=== PATIENT | female | born 1990 | race Caucasian/White ===

== ENCOUNTER 2020-01-26 08:36 | Outpatient (CLI) | payer MEDICAID ==
[~2020-01-26] VITALS: Ht 152 cm; Wt 63.2 kg
[~2020-01-26 08:36] MED LIST: IBUP-1773 PO; PNV91TAB3 PO
--- NOTE | 2020-01-26 08:42 | NUR ---
KANDACE PERSON presented to unit via ambulatory from ED, with c/o BACK PAIN. KANDACE PERSON weighed, gowned, voided, and to bed. EFHM and TOCO applied, VS taken. KANDACE PERSON oriented to bed controls, call light, TV, heat, and A/C controls.
[2020-01-26 09:00] VITALS: BP 126/85
--- NOTE | 2020-01-26 09:10 | NUR ---
This RN talks to Dr Hendrickson, discusses pt report. 27.1 wk CO left sided flank pain, sharp stabbing constant pain, rating pain 6. 125/85 bp, hr 125, 97%, 18 resp, urine dip results, urine send for UA and culture. No fever. NO UC noted by TOCO. Dr Hendrickson orders to start iv, 1L D5LR, [place] 5g one time, 1g Rocephin, renal US.
[2020-01-26] MEDS ORDERED: HYDROcodone/APAP 5 MG/325 MG (LORTAB) TAB PO ONE (09:15)
[2020-01-26] MEDS ORDERED: D5 LR IV SOLUTION 1,000 ML IV SCH (09:15)
[2020-01-26] MEDS ORDERED: cefTRIAXone FOR IV USE 1,000 MG in WATER (STERILE) FOR INJECTION 10 ML IV ONE (09:15)
[2020-01-26 09:21] LABS: BILIRUBIN,URINE NEGATIVE (NEGATIVE); CLARITY,URINE CLEAR; COLOR,URINE YELLOW; GLUCOSE, URINE (UA) NEGATIVE (NEGATIVE); KETONES,URINE 1+ (NEGATIVE); LEUKOCYTE ESTERASE ,URINE 3+ (NEGATIVE); NITRITE,URINE NEGATIVE (NEGATIVE); PROTEIN,URINE NEGATIVE (NEGATIVE)
[2020-01-26 09:40] LABS: BACTERIA,URINE FEW /HPF; SQUAMOUS EPITHELIAL CELL,UR >50 /HPF; WBC,URINE 50-100 /HPF
--- NOTE | 2020-01-26 10:40 | NUR ---
US at bedside for renal US
[2020-01-26] MEDS ORDERED: CEFD300C3 PO (11:21)
--- NOTE | 2020-01-26 11:23 | Diagnostic Imaging Report ---
PROCEDURE: US Renal Bilateral. TECHNIQUE: Multiple Real-time grayscale images were obtained over the kidneys in various projections bilaterally. INDICATION: Left flank pain. Patient is 27 weeks . FINDINGS: The right kidney measures 10.6 x 5.0 x 5.3 cm and the left kidney measures 12.5 x 6.1 x 4.8 cm. The cortical thickness and echogenicity are normal bilaterally. No calculi are seen. There is no hydronephrosis on either side. The urinary bladder demonstrates bilateral ureteral jets. IMPRESSION: Unremarkable renal ultrasound. Dictated by: Dictated on workstation # [id number]
--- NOTE | 2020-01-27 08:14 | Physician Query-Final Dx ---
SANDRA ROSENBERG 01/27/20 0814: Clinic Account Progress/Dx Physician Query: Please give diagnosis Please include # weeks gestation Date of Service Jan 26, 2020 at 08:36 ESTHER ARAUJO MD 01/27/20 2232: Clinic Account Progress/Dx DIAGNOSIS: Diagnosis Left Flank pain Third trimester 27 weeks gestation SANDRA ROSENBERG Jan 27, 2020 08:14 ESTHER ARAUJO MD Jan 27, 2020 22:32
== END 2020-01-26 11:35 | disposition home or self-care (01) ==
LOC: WSo 08:36 → LDRP 08:37 → WSo 11:35
PROVIDERS: ATTEND Family Medicine
DX: O26.892 Other specified pregnancy related conditions, second trimester (principal); R10.9 Unspecified abdominal pain; Z3A.27 27 weeks gestation of pregnancy
CPT/HCPCS: 76770; 81000; 87077; 87088

== ENCOUNTER 2020-03-29 01:05 | Inpatient (IN) | payer MEDICAID ==
[~2020-03-29] VITALS: Ht 149.9 cm; Wt 66.4 kg
[2020-03-29] VITALS (55 sets, daily range): BP systolic 93–138; BP diastolic 51–91
[~2020-03-29 01:05] MED LIST changes: +CEFD300C3 PO
--- NOTE | 2020-03-29 01:10 | NUR ---
KANDACE PERSON presented to unit via AMBULATORY from ED, accompanied by SO, with c/o WATER BROKE. KANDACE PERSON weighed, AND to bed. EFHM and TOCO applied, VS taken. KANDACE PERSON oriented to bed controls, call light, TV, heat, and A/C controls. ABOVE AND FURTHER ASSESSMENTS COMPELTED PER THIS RN, SEE INTERVENTIONS.
[2020-03-29] MEDS ORDERED: D5 LR IV SOLUTION 1,000 ML IV ONE (01:23)
[2020-03-29] MEDS ORDERED: D5 LR IV SOLUTION 1,000 ML IV SCH (02:07)
[2020-03-29] MEDS ORDERED: AMPICILLIN FOR IV USE 2,000 MG in WATER (STERILE) FOR INJECTION 14.8 ML IV SCH (02:07)
[2020-03-29] MEDS ORDERED: MINERAL OIL CONCENTRATE 99.9% 15 ML UDC TOP PRN (02:15)
--- NOTE | 2020-03-29 02:23 | NUR ---
admission paperwork completed.
[2020-03-29] MEDS ORDERED: WATER (STERILE) FOR INJECTION 20 ML ONE (02:27)
[2020-03-29] MEDS ORDERED: AMPICILLIN FOR IV USE 2,000 MG VIAL ONE (02:27)
--- NOTE | 2020-03-29 02:29 | History & Physical-OB ---
OB - Chief Complaint & HPI Date/Time Date of Admission: Date of Admission: 03/29/2020 Date seen by a Provider: Mar 29, 2020 Time Seen by a Provider: 01:45 Chief Complaint/History OB-Reason for Admission/Chief: Labor (w/ rupture of membranes) Hx : 2 Hx Para: 1 Expected Date of Delivery: Apr 23, 2020 Gestational Age in Weeks: 36 Gestational Age in Days: 3 Admission Nurse Assessment Rev: Yes History of Labs A+, Ab+, RI, HIV-, HepB-, RPR-, NG/CT-, GBS+, abnormal pap (2015) Allergies and Home Medications Allergies Coded Allergies: No Known Drug Allergies (Unverified , 04/03/16) Patient Home Medication List Home Medication List Reviewed: Yes OB - History Hx of Present Care: Yes Ultrasounds: Normal mid trimester US Obstetrical Complications: None Medical Complications: None Information Induced Hypertension: No Maternal Gestational Diabetes: No Hemorrhage: No Obstetrical History Hx : 2 Hx Para: 1 Hx # Term Pregnancies: 1 Number of Living Children: 1 Hx Termination: No Hx Multiple Gestation: No Hx Ectopic : No Hx Stillbirth: No Hx Complication: No Hx Induced Hypertens: No Hx Maternal Gestational Diabet: No Hx Hemorrhage: No Delivery History Hx Dystocia: No Hx Forceps Assisted Delivery: No Hx Vacuum Extraction Assisted: No Hx Placenta Abnormality: No Hx Distress: No Hx Large For Gestational Age I: No Hx Small for Gestational Age I: No Hx Section: No Hx Vaginal Delivery Post C-Sec: No Hx Blood Disorders: No Adverse Rxn to Tranfusion: No Patient Past Medical History Chlamydia during last ; negative this ; positive Influenza A this Harper Richardson is a at 36w3d by LMP who presented to OB triage 03/29 for rupture of membranes and contractions. She states she woke up around 1230 thinking she had peed herself in bed, when she realized it wasn't pee. She also noticed contractions at that time, which she describes as lower quadrant band pain, rating her pain about 2/10. She denies any complications this aside from being diagnosed with costochondritis this past weekend. Upon chart review, she was seen in triage this for abdominal pain (negative ultrasound), and was positive for Influenza A. Her last she went into labor at 38w1d, no complications during the or with labor. She denies history of hypertension, diabetes, or preeclampsia. She denies fevers, chills, headache, vision changes, chest pain/pressure, shortness of breath, RUQ pain, or lower extremity edema. +LOF, -VB, +FM, +CTX A+, Ab+, RI, HepB-, RPR-, NG-/CT-, GBS+, abnormal pap (2016) Social History/Family History HIV/AIDS: No Recent Infectious Disease Expo: No Sexually Transmitted Disease: No Alcohol Use: Denies Use Recreational Drug Use: No 2nd Hand Smoke Exposure: No Immunizations Hepatitis A: Yes Hepatitis B: Yes Tetanus Booster (TDap): Less than 5yrs Date of Influenza Vaccine: May 10, 2016 Rubella: immune RPR/VDRL: Negative GBS Status: Positive (via urine culture) HBsAG: Negative OB - Admission Exam Physical Exam Vitals: Vital Signs 03/29/20 01:30 Temp 36.8 Pulse 105 Resp 18 Pulse Ox 99 O2 Delivery Room Air HEENT: Eyes non-injected Heart: Rhythm Normal Lungs: Clear Abdomen: Gravid Extremities: Normal Reflexes: Normal Cervical Dilatation: 2cm Effacement: 50% Membranes: Ruptured Amniotic Fluid: Clear Heart Rate: 150's Accelerations: Accelerations Present Decelerations: No Decelerations Short Term Variability: Present Clinical Product Manager Variability: Average (6-25) Contractions on Admission: < 5 Minutes Apart Date/Time Contractions Began;: 03/29/2020 ~1230 Intensity: Mild Young Scoring Tool (Modified) Dilation (cm): 1-2cm (1) Effacement (%): 51-79% (2) Add 1 point for: Each previous vaginal delivery (1) Subtract 1 point for: PPROM (-1) OB - Assessment/Plan/Diagnosis Assessment Assessment: active labor, group B positive strep, labor, rupture of membranes Admission Dx Onset of labor , 36th week of gestation Admission Status: Inpatient Order (span 2 midnights) Reason for Inpatient Admission: labor, SROM Plan Plan: Expectant Management Other Plan Assessment: labor, 36th week gestation SROM GBS+, urine culture A+, Ab- s/p Tdap Harper Richardson is a 29yo at 36w3d admitted 03/29 for labor and spontaneous rupture of membranes at home (1230am). Plan: Expectant management of labor GBS protocol: Ampicillin 2gx4h, followed by 1g q4h CFM/TOCO Diet: NPO Plans to breastfeed RPR & Type/Cross ordered Problems: (1) 36 weeks gestation of Assessment & Plan: - Routine antepartum care / expectant management (2) labor in third trimester Assessment & Plan: - Expectant management - Routine antepartum care Qualifiers: (3) History of GBS (group B streptococcus) UTI, currently Assessment & Plan: - GBS prophylaxis: Ampicillin loading dose 2g, followed by 1g q4h (4) Anti-D antibodies present in Assessment & Plan: - Will obtain [facility] labs for CASANDRA STERLING MD Mar 29, 2020 02:29
[2020-03-29 02:30] LABS: BASOPHILS % (AUTO) 0 % (0-10); EOSINOPHILS # (AUTO) 0.5 10^3/uL (0.0-0.3); EOSINOPHILS % (AUTO) 3 % (0-10); HEMATOCRIT 30 % (35-52); HEMOGLOBIN 9.5 G/DL (11.5-16.0); LYMPHOCYTES # (AUTO) 2.8 X 10^3 (1.0-4.0); LYMPHOCYTES % (AUTO) 21 % (12-44); MEAN CORPUSCULAR HEMOGLOBIN 23 PG (25-34); MEAN CORPUSCULAR HGB CONC 31 G/DL (32-36); MEAN CORPUSCULAR VOLUME 74 FL (80-99); MEAN PLATELET VOLUME 9.9 FL (7.4-10.4); MONOCYTES # (AUTO) 1.6 X 10^3 (0.0-1.0); MONOCYTES % (AUTO) 11 % (0-12); NEUTROPHILS # (AUTO) 8.7 X 10^3 (1.8-7.8); NEUTROPHILS % (AUTO) 64 % (42-75); PLATELET COUNT 325 10^3/uL (130-400); RED CELL DISTRIBUTION WIDTH 14.6 % (10.0-14.5); WHITE BLOOD COUNT 13.6 10^3/uL (4.3-11.0)
--- NOTE | 2020-03-29 03:36 | NUR ---
was paged r/t IV pain request.
--- NOTE | 2020-03-29 03:38 | NUR ---
here. verbal update given on SVE and pt's request. Stadol 2mg IVP order received.
[2020-03-29] MEDS ORDERED: BUTORPHANOL INJ 2 MG/ML (STADOL) VIAL IV ONE (03:45)
[2020-03-29] MEDS: AMPICILLIN FOR IV USE 1,000 MG in WATER (STERILE) FOR INJECTION 7.4 ML IV SCH ×3 (06:44→14:19)
--- NOTE | 2020-03-29 07:03 | NUR ---
called to check on pt. update given, no new orders received.
--- NOTE | 2020-03-29 07:11 | NUR ---
report given to JUNIOR Velasquez.
[2020-03-29] MEDS ORDERED: fentaNYL 2 mcg/ml BUPIVA 0.125 100 ML ONE (08:05)
[2020-03-29] MEDS: CATHETER FLUSH 10 ML SYR IV SCH ×3 (09:06→22:19)
[2020-03-29] MEDS ORDERED: BUPIVACAINE 0.25% 30 ML (SENSORCAINE) VIAL ONE (09:13)
[2020-03-29] MEDS ORDERED: fentaNYL INJECTION 100 MCG/2 ML AMP ONE (09:14)
--- NOTE | 2020-03-29 09:19 | NUR ---
Chichi Vance MANAGER PHOTOGRAPHY and Student here for epidural placement. Procedure explained, consent reviewed and signed by anesthesia. Questions answered to patient's satisfaction. Time out taken to verify correct patient/procedure. Patient up to side of bed, assisted into sitting position. Betadine prep done x3 and sterile drape applied. Local done, see anesthesia record. Test dose given, see anesthesia record for drug and dosage. Epidural catheter secured in place. Epidural placement complete. Assisted back into bed, monitors adjusted. Epidural dosed, see anesthesia record. Epidural of Sufenta/Bupivicaine @ 10 cc/hr stated per pump. Patient tolerated procedure well.
[2020-03-29] MEDS ORDERED: LACTATED RINGERS 1,000 ML IV SCH (09:52)
[2020-03-29] MEDS ORDERED: ONDANSETRON 4 MG/2 ML (SDV) Z0FRAN IV PRN (10:00)
[2020-03-29] MEDS ORDERED: EPIDURAL (fentaNYL 2 MCG/ML BUPIVA 0.125%)100 ML BAG EPI PRN (10:00)
[2020-03-29] MEDS ORDERED: NALOXONE 0.4 MG/ML 1 ML (NARCAN) VIAL IV PRN ×2 (10:00)
[2020-03-29] MEDS ORDERED: METOCLOPRAMIDE INJ 10 MG/2 ML (REGLAN) IV PRN (10:00)
[2020-03-29] MEDS ORDERED: diphenhydrAMINE 50 MG/ML INJ (BENADRYL) IV PRN (10:00)
[2020-03-29] MEDS ORDERED: OXYTOCIN PRE-MIX DRIP 500 ML IV ONE (12:09)
[2020-03-29] MEDS: OXYTOCIN PRE-MIX DRIP 500 ML IV SCH ×2 (12:16→16:31)
[2020-03-29] MEDS ORDERED: LIDOCAINE/EPI 2% 1:200,00 (XYLOCAINE) 10 ML VIAL ONE (14:58)
--- NOTE | 2020-03-29 16:39 | OB Labor & Delivery Record ---
Vag Delivery Note Vag Delivery Note Date of Delivery: 03/29/20 Preoperative Diagnosis: Harper Richardson is a (29 /Para 2 / 1, Gestational Age (wks)36 (days) 3 [who presented to the ED for labor with ruptured membranes.] Postoperative Diagnosis: Same Surgeon: CALVIN ZUNIGA DO Electric Tripper Machine Operator: [ESTHER ARAUJO MD and LUIS STERLING MD, PGY-2] Anesthesia: [Epidural] Delivery Type: [Spontaneous Vaginal Delivery with Operative Vaginal Delivery by means of vacuum and forceps, midline episiotomy] Findings: Viable [male] , apgars [2,6,6], weight [3090g] Lacerations: 4th degree perineal laceration Intact placenta with 3 vessel cord. Nuchal cord x2 Estimated Blood Loss: [500] ml Complications: OP delivery presentation requiring operative vaginal delivery, [address] Araujo, 2 pulls with forceps by Dr. Zuniga Condition: Critical (fetus), stable maternal patient Description of Procedure: The patient is a 29 year old female who presented [to the ED for labor with ruptured membranes at 36w3d]. She was admitted and informed consent was obtained. Her labor course was remarkable for [pitocin use for augmentation of labor] She progressed to complete dilatation and began to push. She was then set up for delivery. The 's head was delivered atraumatically in the [OP] position. The shoulders and remainder of the 's body were then delivered without difficulty. Upon delivery, the head was held below the level of the perineum and the mouth and nares were bulb suctioned. The cord was doubly clamped and cut and the infant was handed off to the pediatric staff, NRP protocol was followed. An intact placenta with 3-vessel cord delivered via Chris and there was found to be minimal bleeding. Vigorous fundal massage was performed and the fundus was found to be firm. IV oxytocin was given. Examination of the vagina and perineum revealed a [4th degree perineal] laceration repaired in the usual fashion with 4-0, 3-0, 2-0 vicryl suture to reapproximate anal sphincter, muscles, subcutaneous tissue . Following the repair, sponge, instrument and needle counts were correct. Mom in stable condition in the labor suite, baby transferred to nursery for resuscitation. Note completed by Luis Sterling MD. Vitals - Labs Vital Signs - I&O Vital Signs Date Time Temp Pulse Resp B/P (MAP) Pulse Ox O2 Delivery O2 Flow Rate FiO2 03/29/20 14:30 82 18 106/55 (72) 98 Room Air 03/29/20 14:15 36.6 78 18 100/58 (72) 96 Room Air 03/29/20 14:00 83 18 99/63 (75) 97 Room Air 03/29/20 13:45 82 18 109/66 (80) 98 Room Air 03/29/20 13:30 36.6 96 18 106/72 (83) 98 Room Air 03/29/20 13:15 79 18 112/75 (87) 98 Room Air 03/29/20 13:00 96 18 105/59 (74) 98 Room Air 03/29/20 12:45 94 18 108/77 (87) 98 Room Air 03/29/20 12:30 96 18 106/75 (85) 99 Room Air 03/29/20 12:15 36.5 98 18 105/64 (78) 97 Room Air 03/29/20 12:00 86 18 109/64 (79) 97 Room Air 03/29/20 11:45 99 18 111/72 (85) 97 Room Air 03/29/20 11:30 93 18 111/70 (84) 97 Room Air 03/29/20 11:15 100 18 109/67 (81) 98 Room Air 03/29/20 11:00 83 18 106/67 (80) 96 Room Air 03/29/20 10:45 36.5 100 18 107/68 (81) 97 Room Air 03/29/20 10:30 97 18 111/68 (82) 97 Room Air 03/29/20 10:15 93 18 115/65 (82) 96 Room Air 03/29/20 10:00 36.6 83 18 112/67 (82) 97 Room Air 03/29/20 09:45 102 18 123/69 (87) 96 Room Air 03/29/20 09:36 111 18 114/75 (88) 98 Room Air 03/29/20 09:30 97 18 123/74 (90) 99 Room Air 03/29/20 09:30 107 18 125/82 (96) 98 Room Air 03/29/20 09:28 103 18 125/82 (96) 99 Room Air 03/29/20 09:25 113 18 125/91 (102) 100 Room Air 03/29/20 09:19 36.7 100 18 125/72 (89) 100 Room Air 03/29/20 09:15 84 18 118/73 (88) Room Air 03/29/20 09:00 99 18 116/58 (77) Room Air 03/29/20 08:45 18 Room Air 03/29/20 08:30 80 18 114/73 (87) Room Air 03/29/20 08:00 96 18 117/58 (77) Room Air 03/29/20 07:30 36.6 03/29/20 06:45 36.2 90 18 103/73 (83) Room Air 03/29/20 06:15 69 18 102/52 (69) Room Air 03/29/20 06:14 98 Non Rebreather 03/29/20 05:45 85 18 93/57 (69) Room Air 03/29/20 05:15 89 18 102/55 (71) Room Air 03/29/20 04:45 86 18 97/51 (66) Room Air 03/29/20 04:15 100 18 98/57 (71) Room Air 03/29/20 03:45 105 18 119/81 (94) Room Air 03/29/20 03:15 121 18 121/86 (98) Room Air 03/29/20 02:45 114 18 110/76 (87) Room Air 03/29/20 02:20 36.5 94 18 124/72 (89) Room Air 03/29/20 02:00 36.8 104 18 124/82 (96) 97 Room Air 03/29/20 01:30 36.8 105 18 99 Room Air I & O 03/29/20 07:00 Intake Total 14.8 ml Balance 14.8 ml Labs Laboratory Tests 03/29/20 01:40: White Blood Count 13.6H, Red Blood Count 4.07L, Hemoglobin 9.5L, Hematocrit 30L, Mean Corpuscular Volume 74L, Mean Corpuscular Hemoglobin 23L, Mean Corpuscular Hemoglobin Concent 31L, Red Cell Distribution Width 14.6H, Platelet Count 325, Mean Platelet Volume 9.9, Neutrophils (%) (Auto) 64, Lymphocytes (%) (Auto) 21, Monocytes (%) (Auto) 11, Eosinophils (%) (Auto) 3, Basophils (%) (Auto) 0, Neutrophils # (Auto) 8.7H, Lymphocytes # (Auto) 2.8, Monocytes # (Auto) 1.6H, Eosinophils # (Auto) 0.5H, Basophils # (Auto) 0.0 LUIS STERLING MD Mar 29, 2020 16:39
[2020-03-29] MEDS ORDERED: OXYTOCIN PRE-MIX DRIP 500 ML IV SCH (17:07)
--- NOTE | 2020-03-29 17:14 | Labor Progress Note ---
Labor Progress Note Labor Progress Note Date Seen by Provider: Mar 29, 2020 Time Seen by Provider: 15:00 29 yo @ 36.3 wga here after SROM at home. Patient set up for delivery and started pushing 1514. Infant did not tolerate pushing well. After about 10 mins of pushing did not recover as well. Operative Vacuum delivery first attempt 1529 with pop off. Vacuum second attempt 1531 popoff. Minimal progress made with vacuum so third attempt was not done and OB external relations manager Dr Zuniga was called. Dr Zuniga to bedside 1551. Assessment: Bradycardia Failure to Progress Plan: - Called Dr Zuniga to assist with delivery. Successful Forceps delivery by Dr Zuniga Vitals - Labs Vital Signs - I&O Vital Signs Date Time Temp Pulse Resp B/P (MAP) Pulse Ox O2 Delivery O2 Flow Rate FiO2 03/29/20 14:30 82 18 106/55 (72) 98 Room Air 03/29/20 14:15 36.6 78 18 100/58 (72) 96 Room Air 03/29/20 14:00 83 18 99/63 (75) 97 Room Air 03/29/20 13:45 82 18 109/66 (80) 98 Room Air 03/29/20 13:30 36.6 96 18 106/72 (83) 98 Room Air 03/29/20 13:15 79 18 112/75 (87) 98 Room Air 03/29/20 13:00 96 18 105/59 (74) 98 Room Air 03/29/20 12:45 94 18 108/77 (87) 98 Room Air 03/29/20 12:30 96 18 106/75 (85) 99 Room Air 03/29/20 12:15 36.5 98 18 105/64 (78) 97 Room Air 03/29/20 12:00 86 18 109/64 (79) 97 Room Air 03/29/20 11:45 99 18 111/72 (85) 97 Room Air 03/29/20 11:30 93 18 111/70 (84) 97 Room Air 03/29/20 11:15 100 18 109/67 (81) 98 Room Air 03/29/20 11:00 83 18 106/67 (80) 96 Room Air 03/29/20 10:45 36.5 100 18 107/68 (81) 97 Room Air 03/29/20 10:30 97 18 111/68 (82) 97 Room Air 03/29/20 10:15 93 18 115/65 (82) 96 Room Air 03/29/20 10:00 36.6 83 18 112/67 (82) 97 Room Air 03/29/20 09:45 102 18 123/69 (87) 96 Room Air 03/29/20 09:36 111 18 114/75 (88) 98 Room Air 03/29/20 09:30 97 18 123/74 (90) 99 Room Air 03/29/20 09:30 107 18 125/82 (96) 98 Room Air 03/29/20 09:28 103 18 125/82 (96) 99 Room Air 03/29/20 09:25 113 18 125/91 (102) 100 Room Air 03/29/20 09:19 36.7 100 18 125/72 (89) 100 Room Air 03/29/20 09:15 84 18 118/73 (88) Room Air 03/29/20 09:00 99 18 116/58 (77) Room Air 03/29/20 08:45 18 Room Air 03/29/20 08:30 80 18 114/73 (87) Room Air 03/29/20 08:00 96 18 117/58 (77) Room Air 03/29/20 07:30 36.6 03/29/20 06:45 36.2 90 18 103/73 (83) Room Air 03/29/20 06:15 69 18 102/52 (69) Room Air 03/29/20 06:14 98 Non Rebreather 03/29/20 05:45 85 18 93/57 (69) Room Air 03/29/20 05:15 89 18 102/55 (71) Room Air 03/29/20 04:45 86 18 97/51 (66) Room Air 03/29/20 04:15 100 18 98/57 (71) Room Air 03/29/20 03:45 105 18 119/81 (94) Room Air 03/29/20 03:15 121 18 121/86 (98) Room Air 03/29/20 02:45 114 18 110/76 (87) Room Air 03/29/20 02:20 36.5 94 18 124/72 (89) Room Air 03/29/20 02:00 36.8 104 18 124/82 (96) 97 Room Air 03/29/20 01:30 36.8 105 18 99 Room Air I & O 03/29/20 07:00 Intake Total 14.8 ml Balance 14.8 ml Labs Laboratory Tests 03/29/20 01:40: White Blood Count 13.6H, Red Blood Count 4.07L, Hemoglobin 9.5L, Hematocrit 30L, Mean Corpuscular Volume 74L, Mean Corpuscular Hemoglobin 23L, Mean Corpuscular Hemoglobin Concent 31L, Red Cell Distribution Width 14.6H, Platelet Count 325, Mean Platelet Volume 9.9, Neutrophils (%) (Auto) 64, Lymphocytes (%) (Auto) 21, Monocytes (%) (Auto) 11, Eosinophils (%) (Auto) 3, Basophils (%) (Auto) 0, Neutrophils # (Auto) 8.7H, Lymphocytes # (Auto) 2.8, Monocytes # (Auto) 1.6H, Eosinophils # (Auto) 0.5H, Basophils # (Auto) 0.0 ESTHER ARAUJO MD Mar 29, 2020 17:14
[2020-03-29] MEDS ORDERED: DIBUCAINE (NUPERCAINAL) 1% OINT 30 GM TOP PRN (17:15)
[2020-03-29] MEDS ORDERED: BENZOCAINE/MENTHOL (DERMOPLAST) 60 ML CAN TP PRN (17:15)
[2020-03-29] MEDS ORDERED: WITCH HAZEL(TUCKS) 40 EA JAR TOP PRN (17:15)
--- NOTE | 2020-03-29 17:30 | NUR ---
Patient to nursery via bed to see infant.
--- NOTE | 2020-03-29 17:55 | NUR ---
Patient to room 309 via bed. Patient transferred to bed without difficulty. Pericare completed and clean pad and panties applied. Patient oriented to room and bed controls.
[2020-03-29] MEDS: IBUPROFEN 600 MG (MOTRIN) TAB PO SCH (18:22)
[2020-03-29] MEDS: SENNA W/DOCUSATE (SENOKOT S) TABLET PO SCH (20:51)
[2020-03-29] MEDS: ACETAMINOPHEN 500 MG TAB (TYLENOL) PO SCH (20:51)
--- NOTE | 2020-03-29 20:52 | NUR ---
Sched colace & tyl given, Oxyir offered & given for c/o pain. Pt. up to BR, voided & reports having small BM. Ice pack to perineum when back to bed. Hand pump offered & given as pt. reports she would like to bf. Colace held as pt. had BM & unable to crush colace & pt. is unable to take pills.
[2020-03-29] MEDS ORDERED: polyethylene glycoL POWDER 17 GM (MIRALAX) PACK PO SCH (21:00)
[2020-03-29] MEDS: DOCUSATE SODIUM 100 MG (COLACE) CAP PO SCH (22:19)
[2020-03-30 01:29] VITALS: BP 109/70
[2020-03-30] MEDS: IBUPROFEN 600 MG (MOTRIN) TAB PO SCH ×3 (01:29→09:09)
[2020-03-30 04:42] VITALS: BP 110/68
[2020-03-30] MEDS: ACETAMINOPHEN 500 MG TAB (TYLENOL) PO SCH (04:42)
[2020-03-30 05:38] LABS: BASOPHILS % (AUTO) 0 % (0-10); EOSINOPHILS # (AUTO) 0.2 10^3/uL (0.0-0.3); EOSINOPHILS % (AUTO) 1 % (0-10); HEMATOCRIT 27 % (35-52); HEMOGLOBIN 8.3 G/DL (11.5-16.0); LYMPHOCYTES # (AUTO) 3.2 X 10^3 (1.0-4.0); LYMPHOCYTES % (AUTO) 21 % (12-44); MEAN CORPUSCULAR HEMOGLOBIN 23 PG (25-34); MEAN CORPUSCULAR HGB CONC 31 G/DL (32-36); MEAN CORPUSCULAR VOLUME 76 FL (80-99); MEAN PLATELET VOLUME 9.9 FL (7.4-10.4); MONOCYTES # (AUTO) 2.1 X 10^3 (0.0-1.0); MONOCYTES % (AUTO) 14 % (0-12); NEUTROPHILS # (AUTO) 9.5 X 10^3 (1.8-7.8); NEUTROPHILS % (AUTO) 63 % (42-75); PLATELET COUNT 253 10^3/uL (130-400); RED CELL DISTRIBUTION WIDTH 14.8 % (10.0-14.5)
[2020-03-30] MEDS ORDERED: ACET-93 PO (06:08)
[2020-03-30] MEDS ORDERED: OXYC5TAB96 PO (06:08)
[2020-03-30] MEDS ORDERED: DCS100C PO (06:08)
[2020-03-30] MEDS ORDERED: IBUP-844 PO (06:08)
--- NOTE | 2020-03-30 06:17 | Discharge Summary ---
Diagnosis/Chief Complaint Date of Admission Mar 29, 2020 at 02:07 Date of Discharge March 30, 2020 Discharge Date: Mar 30, 2020 Discharge Time: 17:00 Admission Diagnosis Admission Diagnosis Intrauterine at 36 4/7 weeks 2. PROM 3. Labor Discharge Diagnosis Intrauterine at 36 4/7 weeks 2. PROM 3. Labor 4. D [facility] Reason Hospital Visit PROM at 36 4/7 weeks Discharge Summary Hospital Course Was the Problem List Reviewed?: Yes Hospital Course Ms. Richardson, A0 at 36 4/7 weeks, presented to Labor & Delivery with PROM. Her labor was augmented with Pitocin. She progressed to complete, pushed for a period of time. I was consulted and delivered a viable via outlet forceps in the Occiput Anterior position. The was evaluated and transferred for respiratory difficulties. Ms. Richardson was doing well. She was started on oral pain medication along with other comfort measures. Her day of delivery was unremarkable. Day #1 found Ms. Richardson without complaint. I will discharge her to home with instructions, prescriptions, and a follow up appointment with Dr. Hendrickson Labs Laboratory Tests 03/29/20 01:40: White Blood Count 13.6H, Red Blood Count 4.07L, Hemoglobin 9.5L, Hematocrit 30L, Mean Corpuscular Volume 74L, Mean Corpuscular Hemoglobin 23L, Mean Corpuscular Hemoglobin Concent 31L, Red Cell Distribution Width 14.6H, Neutrophils # (Auto) 8.7H, Monocytes # (Auto) 1.6H, Eosinophils # (Auto) 0.5H 03/30/20 05:15: White Blood Count 15.0H, Red Blood Count 3.58L, Hemoglobin 8.3L, Hematocrit 27L, Mean Corpuscular Volume 76L, Mean Corpuscular Hemoglobin 23L, Mean Corpuscular Hemoglobin Concent 31L, Red Cell Distribution Width 14.8H, Neutrophils # (Auto) 9.5H, Monocytes # (Auto) 2.1H, Monocytes (%) (Auto) 14H Procedures None. Discharge Physical Examination Allergies: Coded Allergies: No Known Drug Allergies (Unverified , 04/03/16) Vitals & I&Os Vital Signs Date Time Temp Pulse Resp B/P (MAP) Pulse Ox O2 Delivery O2 Flow Rate FiO2 03/30/20 04:42 36.6 98 18 110/68 (82) 97 Room Air 03/29/20 15:50 15.00 General Appearance: Alert, Oriented X3, Cooperative HEENT: Atraumatic Respiratory: Clear to Auscultation, Normal Air Movement Cardiovascular: Regular Rate, No Murmurs Abdominal: Normal Bowel Sounds, Soft, No Tenderness Extremities: No Clubbing, No Cyanosis Skin: No Rashes Neuro: Normal Gait, Normal Speech Psych/Mental Status: Mental Status NL Discharge Home Medications Reviewed and agree with Discharge Medication list on patient's Discharge Instruction sheet Instructions to Patient/Family Please see electronic discharge instructions given to patient. Clinical Quality Measures DVT/VTE Risk/Contraindication: Risk Factor Score Per Nursin RFS Level Per Nursing on Admit: 1=Low/No VTE PPX CALVIN PUENTE DO Mar 30, 2020 06:17
--- NOTE | 2020-03-30 06:47 | Anesthesia-Regional Post-Op ---
Regional Patient Condition Mental Status: Alert, Oriented x3 Circulation: Same as Pre-Op Headache: Absent Sensation: Full Recovery Motor Block: Absent Post Op Complications Complications None Follow Up Care/Instructions Patient Instructions None needed. Anesthesia/Patient Condition Patient is doing well, no complaints, stable vital signs, no apparent adverse anesthesia problems. No complications reported per nursing. D/C home per [facility] Criteria: No KIYA PRATT CRNA Mar 30, 2020 06:47
[2020-03-30] MEDS: DOCUSATE SODIUM 100 MG (COLACE) CAP PO SCH (08:59)
[2020-03-30 09:00] VITALS: BP 112/55
[2020-03-30] MEDS: SENNA W/DOCUSATE (SENOKOT S) TABLET PO SCH (09:08)
[2020-03-30 12:45] VITALS: BP 112/55
--- NOTE | 2020-03-30 12:45 | NUR ---
Discharged to car via wheelchair. in NICU at [facility] in [place], [place]. Plans to leave her to see baby. Verbalized understanding of instructions.
== END 2020-03-30 12:45 | disposition home or self-care (01) | DRG 768 ==
LOC: WSo 01:05 → LDRP 01:06 → WSo 02:07 → LDRP 02:07
PROVIDERS: ADMIT Family Medicine; ATTEND Family Medicine
PROC: 10D07Z3 Extraction of Products of Conception, Low Forceps, Via Natural or Artificial Opening (ICD-10-PCS; principal; 2020-03-29)
PROC: 0DQP0ZZ Repair Rectum, Open Approach (ICD-10-PCS; 2020-03-29)
PROC: 0W8NXZZ Division of Female Perineum, External Approach (ICD-10-PCS; 2020-03-29)
DX: O42.013 Preterm premature rupture of membranes, onset of labor within 24 hours of rupture, third trimester (principal); Z37.0 Single live birth; O70.3 Fourth degree perineal laceration during delivery; O69.81X0 Labor and delivery complicated by cord around neck, without compression, not applicable or unspecified; O64.0XX0 Obstructed labor due to incomplete rotation of fetal head, not applicable or unspecified; O99.824 Streptococcus B carrier state complicating childbirth; O76 Abnormality in fetal heart rate and rhythm complicating labor and delivery; O62.2 Other uterine inertia; Z3A.36 36 weeks gestation of pregnancy
CPT/HCPCS: 36415; 85025; 86780; 86850; 86900; 86901; 99212